=== PATIENT | female | born 1990 | race Caucasian/White ===

== ENCOUNTER 2020-02-14 12:20 | Day surgery (SDC) | payer MEDICARE ==
[2020-02-14] MEDS ORDERED: LIDOCAINE HCL 2% 100 MG/5 ML IJ ONE (12:21)
[2020-02-14] MEDS ORDERED: Depo-Medrol 40 MG/ML IM ONE (12:21)
[2020-02-14] MEDS ORDERED: DIPRIVAN 200 MG/20 ML IV ONE ×2 (14:06→14:15)
[2020-02-14] MEDS ORDERED: Ketamine HCl 50 MG/ML ONE (14:06)
--- NOTE | 2020-02-14 15:18 | XRAY ---
Indication: Bilateral L4-S1 MBB. Intraoperative fluoroscopy was provided for 17 seconds. Single digital spot image submitted for interpretation demonstrates posterior needle tips projecting over the expected left and right L4-S1 nerve roots. Correlate with intraoperative findings/report.
--- NOTE | 2020-02-14 15:22 | XRAY ---
17 seconds fluoroscopy time in surgery for bilateral L4-S1 MBB.
[2020-02-14] MEDS ORDERED: Lactated Ringers 1,000 ML IV ONE (16:51)
== END 2020-02-14 14:40 | disposition home or self-care (01) ==
LOC: SDC-PAIN 12:20
PROVIDERS: ATTEND Psychiatry & Neurology Pain Medicine
DX: M47.816 Spondylosis without myelopathy or radiculopathy, lumbar region (principal); F43.10 Post-traumatic stress disorder, unspecified; M41.9 Scoliosis, unspecified; J45.909 Unspecified asthma, uncomplicated; Z79.899 Other long term (current) drug therapy; F41.8 Other specified anxiety disorders
CPT/HCPCS: 64493; 64494; 72020; 77002; 84703; J1030; J2704

== ENCOUNTER 2020-02-28 12:55 | Day surgery (SDC) | payer MEDICARE | END 2020-02-28 14:00 | disposition home or self-care (01) | LOC: SDC-PAIN 12:55 | PROVIDERS: ATTEND Psychiatry & Neurology Pain Medicine | DX: Z53.09 Procedure and treatment not carried out because of other contraindication (principal) | CPT/HCPCS: 84703 ==

== ENCOUNTER 2020-03-20 12:25 | Day surgery (SDC) | payer MEDICARE ==
[2020-03-20] MEDS ORDERED: BUPIVACAINE 0.5% VIAL IJ ONE (12:26)
[2020-03-20] MEDS ORDERED: Depo-Medrol 40 MG/ML IM ONE (12:26)
[2020-03-20] MEDS ORDERED: DIPRIVAN 200 MG/20 ML IV ONE (14:31)
[2020-03-20] MEDS ORDERED: Ketamine HCl 50 MG/ML ONE (14:31)
--- NOTE | 2020-03-20 15:22 | XRAY ---
Indication: Bilateral L4-S1 MBB. Intraoperative fluoroscopy was provided for 13 seconds. Single digital spot image submitted for interpretation demonstrates posterior needle tips projecting over the expected left and right L4-S1 nerve roots. Correlate with intraoperative findings/report.
[2020-03-20] MEDS ORDERED: Lactated Ringers 1,000 ML IV ONE (15:31)
--- NOTE | 2020-03-20 17:28 | XRAY ---
13 seconds fluoroscopy time in surgery for bilateral L4-S1 MBB.
== END 2020-03-20 15:00 | disposition home or self-care (01) ==
LOC: SDC-PAIN 12:25
PROVIDERS: ATTEND Psychiatry & Neurology Pain Medicine
DX: M47.816 Spondylosis without myelopathy or radiculopathy, lumbar region (principal); Z87.820 Personal history of traumatic brain injury; J45.909 Unspecified asthma, uncomplicated; F43.10 Post-traumatic stress disorder, unspecified; F41.8 Other specified anxiety disorders; M41.9 Scoliosis, unspecified; Z79.899 Other long term (current) drug therapy
CPT/HCPCS: 36415; 64493; 64494; 64495; 72020; 77002; 81025; J1030; J2704

== ENCOUNTER 2020-05-22 10:30 | Day surgery (SDC) | payer MEDICARE ==
[2020-05-22] MEDS ORDERED: Xylocaine 1% Vial 30 ML PF IJ ONE (10:31)
[2020-05-22] MEDS ORDERED: Depo-Medrol 40 MG/ML IM ONE (10:31)
[2020-05-22] MEDS ORDERED: BUPIVACAINE 0.5% VIAL IJ ONE (10:31)
[2020-05-22] MEDS ORDERED: DIPRIVAN 200 MG/20 ML IV ONE ×2 (12:40→12:50)
[2020-05-22] MEDS ORDERED: Ketamine HCl 50 MG/ML ONE (12:40)
[2020-05-22] MEDS ORDERED: Lactated Ringers 1,000 ML IV ONE (14:06)
--- NOTE | 2020-05-22 14:56 | XRAY ---
Indication: Left L4-S1 RFA. Intraoperative fluoroscopy provided for 40 seconds. 3 digital spot images submitted for interpretation demonstrates posterior needle tips projecting over the expected left L4-S1 nerve roots. Correlate with intraoperative findings/report.
--- NOTE | 2020-05-22 15:03 | XRAY ---
40 seconds fluoroscopy time in surgery for left L4-S1 RFA.
== END 2020-05-22 13:20 | disposition home or self-care (01) ==
LOC: SDC-PAIN 10:30
PROVIDERS: ATTEND Psychiatry & Neurology Pain Medicine
DX: M47.816 Spondylosis without myelopathy or radiculopathy, lumbar region (principal); F41.8 Other specified anxiety disorders; F43.10 Post-traumatic stress disorder, unspecified; M41.9 Scoliosis, unspecified; Z87.820 Personal history of traumatic brain injury; Z79.899 Other long term (current) drug therapy
CPT/HCPCS: 36415; 64635; 64636; 72100; 77002; 81025; J1030; J2001; J2704

== ENCOUNTER 2020-06-05 12:35 | Day surgery (SDC) | payer MEDICARE ==
[2020-06-05] MEDS ORDERED: Xylocaine 1% Vial 30 ML PF IJ ONE (12:36)
[2020-06-05] MEDS ORDERED: Depo-Medrol 40 MG/ML IM ONE (12:36)
[2020-06-05] MEDS ORDERED: BUPIVACAINE 0.5% VIAL IJ ONE (12:36)
[2020-06-05] MEDS ORDERED: DIPRIVAN 200 MG/20 ML IV ONE ×2 (14:46→14:56)
[2020-06-05] MEDS ORDERED: Ketamine HCl 50 MG/ML ONE (14:46)
--- NOTE | 2020-06-05 15:45 | XRAY ---
Indication: Right L4-S1 RFA. Intraoperative fluoroscopy provided for 47 seconds. 3 digital spot images submitted for interpretation demonstrates posterior needle tips projecting over the expected right L4-S1 nerve roots. Correlate with intraoperative findings/report.
--- NOTE | 2020-06-05 16:01 | XRAY ---
47 seconds of fluoroscopy was used in surgery for a right L4-L5 and L5-S1 RFA.
[2020-06-05] MEDS ORDERED: Lactated Ringers 1,000 ML IV ONE (16:37)
== END 2020-06-05 15:24 | disposition home or self-care (01) ==
LOC: SDC-PAIN 12:35
PROVIDERS: ATTEND Psychiatry & Neurology Pain Medicine
DX: M47.816 Spondylosis without myelopathy or radiculopathy, lumbar region (principal); J45.909 Unspecified asthma, uncomplicated; Z87.820 Personal history of traumatic brain injury; F43.10 Post-traumatic stress disorder, unspecified; M41.9 Scoliosis, unspecified; F41.8 Other specified anxiety disorders; Z79.899 Other long term (current) drug therapy
CPT/HCPCS: 36415; 64635; 64636; 72100; 77002; 84702; J1030; J2001; J2704

== ENCOUNTER 2021-02-26 07:59 | Day surgery (SDC) | payer MEDICARE ==
[2021-02-26] MEDS ORDERED: TYLENOL EXTRA STRENGTH 500 MG PO ONE (08:00)
[2021-02-26] MEDS ORDERED: Xylocaine 1% Vial 30 ML PF IJ ONE (08:00)
[2021-02-26] MEDS ORDERED: BUPIVACAINE 0.5% VIAL IJ ONE (08:00)
[2021-02-26] MEDS ORDERED: Depo-Medrol 40 MG/ML IM ONE (08:00)
[2021-02-26] MEDS ORDERED: Lactated Ringers 1,000 ML IV ONE (09:20)
--- NOTE | 2021-02-26 10:39 | XRAY ---
Indication: Left L4-S1 transforaminal NANO. Intraoperative fluoroscopy provided for 44 seconds. 5 digital spot images submitted for interpretation demonstrate posterior needle tips projecting over the expected left L4 and L5 nerve roots. Small amount of contrast injected for needle tip placement. Correlate with intraoperative findings/report.
--- NOTE | 2021-02-26 10:44 | XRAY ---
44 seconds fluoroscopy time in surgery for left L4-S1 transforaminal NANO.
== END 2021-02-26 10:15 | disposition home or self-care (01) ==
LOC: SDC-PAIN 07:59
PROVIDERS: ATTEND Psychiatry & Neurology Pain Medicine
DX: M54.16 Radiculopathy, lumbar region (principal); Z72.0 Tobacco use
CPT/HCPCS: 64483; 64484; 72100; 77003; 84703; J1030; J2001; Q9966; A9270-GY

== ENCOUNTER 2021-03-02 15:01 | Emergency (ER) | payer MEDICARE ==
--- NOTE | 2021-03-02 15:37 | ERPHSYRPT ---
- History of Present Illness Source: patient Exam Limitations: no limitations Timing/Duration: today Method of Injury: fall Quality: sharp Back Pain Location: lumbar spine, paraspinous muscles Severity of Pain-Max: severe Severity of Pain-Current: severe Modifying Factors: Improves With: immobilization. Worsens With: movement Associated Symptoms: weakness, sensory/motor loss, lower back pain Previous symptoms: same symptoms as today <ROSINA LEDBETTER - Last Filed: 03/02/21 18:54> <VITALIY LEE - Last Filed: 03/02/21 20:56> - History of Present Illness Time Seen by Provider: 03/02/21 15:07 Physician History: 30-year-old morbidly obese female with history of chronic lower extremity weakness, chronic back pain on pain management presented in the ER with chief complaint of worsening back pain after she was trying to put her compression stockings and slid out of her bed and hit her lower back against the bed rail. Moderate to severe sharp pain lower back without much radiation and no new wea kness tingling or numbness in lower extremities but but she has chronically and uses leg braces. No loss of bowel or bladder control. Patient was seen at [facility] earlier today. (ROSINA LEDBETTER) Allergies/Adverse Reactions: codeine Allergy (Verified 03/02/21 15:40) morphine Allergy (Verified 03/02/21 15:40) NSAIDS (Non-Steroidal Anti-Inflamma Allergy (Verified 03/02/21 15:40) sulfamethoxazole [From Bactrim] Allergy (Verified 03/02/21 15:40) trimethoprim [From Bactrim] Allergy (Verified 03/02/21 15:40) Home Medications: Acetaminophen 325 mg [Tylenol 325 mg] 325 mg PO DAILY PRN PRN 03/02/21 [History] Baclofen 20 mg PO QID 03/02/21 [History] Benazepril/Hydrochlorothiazide [Benazepril-Hctz 20-12.5 mg Tab] 1 each PO DAILY 03/02/21 [History] Bethanechol Chloride 10 mg PO BID 03/02/21 [History] Docusate Sodium 100 mg [Colace 100 MG] 100 mg PO DAILY 03/02/21 [History] Gabapentin [Neurontin] 600 mg PO DAILY 03/02/21 [History] Hydrocodone/Acetaminophen [Hydrocodone-Acetamin 10-325 mg] 1 tablet PO DAILY PRN PRN 03/02/21 [History] Levocetirizine Dihydrochloride [Allergy Relief] 5 mg PO DAILY 03/02/21 [History] Levothyroxine Sodium 100 Mcg [Synthroid 100 Mcg] 100 mcg PO DAILY 03/02/21 [History] Promethazine HCl 25 mg [Phenergan 25 mg] 25 mg PO DAILY 03/02/21 [History] - Review of Systems Constitutional: No Symptoms Eyes: No Symptoms Ears, Nose, & Throat: No Symptoms Respiratory: No Symptoms Cardiac: No Symptoms Abdominal/Gastrointestinal: No Symptoms Musculoskeletal: Arthralgias, Back Pain Skin: No Symptoms Neurological: Sensory Changes Psychological: No Symptoms Endocrine: No Symptoms Hematologic/Lymphatic: No Symptoms <ROSINA LEDBETTER - Last Filed: 03/02/21 18:54> - Past Medical History Neurological History: Migraines, Other Cardiac History: No Pertinent History Respiratory History: Asthma Endocrine Medical History: Hyperthyroidism, Other Musculoskeletal History: Osteoarthritis Other Medical History: kidney stones, anoxic brain injury - Female History Hx Now: (unkn) <ROSINA LEDBETTER - Last Filed: 03/02/21 18:54> - Physical Exam General Appearance: no apparent distress Eye Exam: PERRL/EOMI Ears, Nose, Throat Exam: normal ENT inspection Neck Exam: normal inspection, supple, full range of motion Respiratory Exam: normal breath sounds, lungs clear Cardiovascular Exam: regular rate/rhythm, normal heart sounds Gastrointestinal Exam: soft, normal bowel sounds, No tenderness Back Exam: vertebral tenderness (Lumbar spinal and paraspinal area), decreased range of motion, muscle spasm, point tenderness Extremity Exam: normal inspection, other (Straight leg raising test positive at 60 degrees on right and 45 degrees on the left.), No normal range of motion (Foot drop left) Neurologic Exam: alert, oriented x 3, cooperative, manager linux II-XII nml as tested, normal mood/affect, No nml station & gait Skin Exam: normal color SpO2 Interpretation: normal SpO2: 96 O2 Delivery: Room Air <ROSINA LEDBETTER - Last Filed: 03/02/21 18:54> - Nursing Vital Signs Nursing Vital Signs: Initial Vital Signs Temperature 99.4 F 03/02/21 15:07 Pulse Rate 107 H 03/02/21 15:07 Respiratory Rate 20 03/02/21 15:07 Blood Pressure 148/94 03/02/21 15:07 O2 Sat by Pulse Oximetry 97 03/02/21 15:07 Pain Scale Pain Intensity [Back] 10 Pain Intensity 8 Ordered Tests: Active Orders 24 hr Category Date Time Status LUMBAR SPINE W/O [CT] Stat Exams 03/02/21 15:32 Taken Medication Summary Discontinued Medications Generic Name Dose Route Start Last Admin Trade Name Skip PRN Reason Stop Dose Admin Hydromorphone HCl 1 mg 03/02/21 15:31 03/02/21 15:43 Hydromorphone 1 Mg/1ml Inj 1 Mg/Ml Syringe IM 03/02/21 15:32 1 mg STAT ONE Administration Hydromorphone HCl Confirm 03/02/21 15:41 Hydromorphone 1 Mg/1ml Inj 1 Mg/Ml Syringe Administered 03/02/21 15:42 Dose 1 mg .ROUTE .STK-MED ONE Orphenadrine Citrate 60 mg 03/02/21 15:32 03/02/21 15:42 Orphenadrine Citrate 60 Mg/2 Ml Amp IM 03/02/21 15:33 60 mg STAT ONE Administration Orphenadrine Citrate Confirm 03/02/21 15:41 Orphenadrine Citrate 60 Mg/2 Ml Amp Administered 03/02/21 15:42 Dose 60 mg .ROUTE .STK-MED ONE - Progress Progress: improved, pain not gone completely <ROSINA LEDBETTER - Last Filed: 03/02/21 18:54> - Progress Counseled pt/family regarding: diagnosis, need for follow-up, rad results <VITALIY LEE - Last Filed: 03/02/21 20:56> - Progress Progress Note: 03/02/21 18:54 She is given symptomatic treatment for pain, reevaluation feeling better. No cauda equina symptoms. CT lumbar spine is pending. I have reviewed x-ray results and ER visit note from [facility] this morning which did not show any obvious fracture dislocation. Care is transferred to Dr. Lee at shift change for final disposition. (ROSINA LEDBETTER) 03/02/21 20:56 CAT scan of the lumbar spine shows no acute fracture or subluxation. (VITALIY THOMAS) <ROSINA LEDBETTER - Last Filed: 03/02/21 18:54> - Departure Departure Disposition: Home Critical Care Time: No <VITALIY LEE - Last Filed: 03/02/21 20:56> - Departure Clinical Impression: Back pain Condition: Stable Referrals: SOLEDAD GARCIA NP [Primary Care Provider] - Follow up/PCP as directed Additional Instructions: Take your medication as prescribed. Follow-up with your primary care physician, a pain specialist, and/or back specialist for further management.
[2021-03-02] MEDS ORDERED: Hydromorphone 1 mg/ml Injection ONE (15:41)
[2021-03-02] MEDS ORDERED: Norflex 60 MG/2 ML ONE (15:41)
[2021-03-02] MEDS: Norflex 60 MG/2 ML IM ONE (15:42)
[2021-03-02] MEDS: Hydromorphone 1 mg/ml Injection IM ONE (15:43)
--- NOTE | 2021-03-03 09:01 | XRAY ---
Indication: Low back pain following fall. Multiple contiguous axial images obtained through the lumbar spine. Sagittal and coronal reformatted images obtained. Comparison: None Axial images negative for acute fracture, suspicious bony lesions, or spinal canal stenosis. Facets are symmetric. Sagittal and coronal reformatted images demonstrates normal lumbar lordosis with vertebral body heights/disc spaces maintained. Mild levoscoliosis centered at L3. No acute compression fracture or subluxation. Visualized noncontrasted soft tissues demonstrates nonobstructing 2 mm left renal calculus. Impression: 1. Mild levoscoliosis and nonobstructing left renal micro-calculus. 2. Remaining CT lumbar spine is negative. Comment: Preliminary interpretation made by [facility]. No critical discrepancy.
[2021-03-03 17:08] VITALS: BP 142/78; PULSE 92; O2SAT 95
== END 2021-03-02 21:36 | disposition home or self-care (01) ==
LOC: ED 15:01
DX: M54.50 Low back pain, unspecified (principal); W06.XXXA Fall from bed, initial encounter; Y92.003 Bedroom of unspecified non-institutional (private) residence as the place of occurrence of the external cause; Z79.891 Long term (current) use of opiate analgesic
CPT/HCPCS: 72131; 96372; 99284; J1170; J2360

== ENCOUNTER 2021-03-10 08:05 | Emergency (ER) | payer MEDICARE ==
[2021-03-10 08:12] VITALS: O2SAT 98
--- NOTE | 2021-03-10 09:03 | ERPHSYRPT ---
- History of Present Illness Source: patient Exam Limitations: other (Poor historian) Patient Subjective Stated Complaint: pt here for falls, last fall was this am when she slid out of bed and ems helped her up. co pain to lower back that is chronic for her, Triage Nursing Assessment: pt alert, resp easy, skin w/d/p. pt has braces to lower legs, from foot drop and uses a wc at home, skin w/d/p. face mask in place, has yellow bruising to right arm Physician History: 30 yo wf w chronic B foot drop due to previous OD/extended ICU stay presents w lumbar-coccygeal pain after several falls due to her disability. She denies LOC/GARDINER/C,T, and L-spine pain/Ab pain/hip pain/upper-lower extremity pain/melena/hematochezia/focal weakness/fever/cough/chills. Occurred: yesterday Reason for Fall: tripped (Due to chronic B LE foot drop) Injuries/Pain Location: back (Lumbar-coccyx) Loss of Consciousness: no loss of consciousness Quality: aching Severity of Pain-Max: moderate Severity of Pain-Current: moderate Modifying Factors: Improves With: movement Associated Symptoms (Fall): back pain, No abdominal pain, No confusion, No chest pain, No dizziness, No extremity injury, No headache, No lightheadedness, No muscle spasms, No nausea, No neck pain, No ringing in ears, No seizures, No shortness of breath, No slurred speech, No trouble walking, No vomiting, No vision changes Allergies/Adverse Reactions: codeine Allergy (Verified 03/10/21 08:12) morphine Allergy (Verified 03/10/21 08:12) NSAIDS (Non-Steroidal Anti-Inflamma Allergy (Verified 03/10/21 08:12) sulfamethoxazole [From Bactrim] Allergy (Verified 03/10/21 08:12) trimethoprim [From Bactrim] Allergy (Verified 03/10/21 08:12) Home Medications: Benazepril/Hydrochlorothiazide [Benazepril-Hctz 20-12.5 mg Tab] 1 each PO DAILY 03/02/21 [History] Bethanechol Chloride 10 mg PO BID 03/02/21 [History] Docusate Sodium 100 mg [Colace 100 MG] 100 mg PO DAILY 03/02/21 [History] Gabapentin [Neurontin] 600 mg PO DAILY 03/02/21 [History] Levocetirizine Dihydrochloride [Allergy Relief] 5 mg PO DAILY 03/02/21 [History] Levothyroxine Sodium 100 Mcg [Synthroid 100 Mcg] 100 mcg PO DAILY 03/02/21 [History] Promethazine HCl 25 mg [Phenergan 25 mg] 25 mg PO DAILY 03/02/21 [History] Hx Tetanus, Diphtheria Vaccination/Date Given: No Hx Influenza Vaccination/Date Given: Yes Hx Pneumococcal Vaccination/Date Given: Yes Immunizations Up to Date: Yes Travel Risk - International Travel Have you traveled outside of the country in past 3 weeks: No - Coronavirus Screening Are you exhibiting any of the following symptoms?: No - Vaccine Status Have you recieved a Covid-19 vaccination: No - Review of Systems Constitutional: No Symptoms Eyes: No Symptoms Ears, Nose, & Throat: No Symptoms Respiratory: No Symptoms Cardiac: No Symptoms Abdominal/Gastrointestinal: No Symptoms Genitourinary Symptoms: No Symptoms Musculoskeletal: No Symptoms, Back Pain Skin: No Symptoms Neurological: No Symptoms Psychological: No Symptoms Endocrine: No Symptoms Hematologic/Lymphatic: No Symptoms Immunological/Allergic: No Symptoms - Past Medical History Pertinent Past Medical History: Yes Neurological History: Migraines, Other ENT History: No Pertinent History Cardiac History: No Pertinent History Respiratory History: Asthma Endocrine Medical History: Hyperthyroidism, Other Musculoskeletal History: Osteoarthritis GI Medical History: No Pertinent History History: No Pertinent History Psycho-Social History: No Pertinent History Female Reproductive Disorders: No Pertinent History Other Medical History: kidney stones, anoxic brain injury - Past Surgical History Past Surgical History: Yes Musculoskeletal: Orthopedic Surgery Female Surgical History: Dilation & Curettage, Tubal Ligation Other Surgical History: Ablasion, pain injections to back. R knee - Social History Smoking Status: Current every day smoker How long have you smoked: years Exposure to second hand smoke: Yes Drug Use: none Patient Lives Alone: Yes Significant Family History: no pertinent family hx - Female History Hx Last Menstrual Period: irregular Hx Now: No - Nursing Vital Signs Nursing Vital Signs: Initial Vital Signs Temperature 97.8 F 03/10/21 08:06 Pulse Rate 89 03/10/21 08:06 Respiratory Rate 16 03/10/21 08:06 Blood Pressure 127/72 03/10/21 08:06 O2 Sat by Pulse Oximetry 98 03/10/21 08:06 Pain Scale Pain Intensity 5 - Sonia Coma Score Best Eye Response (Sonia): (4) open spontaneously Best Verbal Response ([place]): (5) oriented Best Motor Response (Sonia): (6) obeys commands Sonia Total: 15 - Physical Exam General Appearance: no apparent distress Head Injury: no evidence of injury Eye Exam: PERRL/EOMI, eyes nml inspection ENT Exam: airway nml, No evidence of ENT injury Neck Exam: supple, trachea midline, full range of motion, normal alignment (No C-spine ttp), No focal neuro deficit Respiratory/Chest Exam: normal breath sounds, No respiratory distress Cardiovascular Exam: normal heart sounds, regular rate/rhythm, normal peripheral pulses, No murmur, No edema Gastrointestinal Exam: soft, normal bowel sounds, No tenderness Back Exam: vertebral tenderness (Mild inferior L-spine TTP and mild sacral- coccyx TTP) Extremity Exam: normal inspection (Braces B LE), capillary refill <3 sec, pelvis stable, No deformities Peripheral Pulses: carotid (R): 2+, carotid (L): 2+ Neurologic Exam: alert, oriented x 3, cooperative, 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, normal mood/affect, No motor deficits, No sensory deficit Skin Exam: normal color, warm, dry SpO2 Interpretation: normal SpO2: 98 O2 Delivery: Room Air - Course Nursing assessment & vital signs reviewed: Yes - Radiology Exams Other X-ray Interpretation: Discussed w/ radiologist (Sacral-coccygeal possible coccyx fx) - CT Exams Lumbar Spine CT Interpretation: Discussed w/radiologist (Nothing acute) Ordered Tests: Active Orders 24 hr Category Date Time Status LUMBAR SPINE W/O [CT] Stat Exams 03/10/21 08:49 Completed SACRUM AND COCCYX Stat Exams 03/10/21 Completed Medication Summary Discontinued Medications Generic Name Dose Route Start Last Admin Trade Name Freq PRN Reason Stop Dose Admin Hydromorphone HCl 0.5 mg 03/10/21 10:29 03/10/21 10:36 Hydromorphone 1 Mg/1ml Inj 1 Mg/Ml Syringe IM 03/10/21 10:30 0.5 mg STAT ONE Administration Hydromorphone HCl Confirm 03/10/21 10:35 Hydromorphone 1 Mg/1ml Inj 1 Mg/Ml Syringe Administered 03/10/21 10:36 Dose 5 mg .ROUTE .STK-MED ONE Ondansetron HCl 4 mg 03/10/21 10:29 03/10/21 10:38 Zofran 4 Mg/Udtablet Orally Disintegrating PO 03/10/21 10:30 4 mg STAT ONE Administration Ondansetron HCl Confirm 03/10/21 10:34 Ondansetron Hcl 4 Mg/2 Ml Vial Administered 03/10/21 10:35 Dose 4 mg .ROUTE .STK-MED ONE Ondansetron HCl Confirm 03/10/21 10:38 Zofran 4 Mg/Udtablet Orally Disintegrating Administered 03/10/21 10:39 Dose 4 mg .ROUTE .STK-MED ONE - Progress Progress: improved Progress Note: 03/10/21 10:31 Spoke w Pain management about pt. Pt missed her appointment on 03/03/21 and needs to reschedule and pay $25 cancellation fee. Pt not under pain contract, so ok to treat w narcotics. 03/10/21 19:22 0.5mg IV Dilaudid w relief in pain Zofran 4mg ODT Pt stable when EMS transferred to home Counseled pt/family regarding: diagnosis, need for follow-up, rad results - Departure Departure Disposition: Home Clinical Impression: Fractured coccyx Condition: Stable Critical Care Time: No Referrals: SOLEDAD GARCIA, MIHAELA [Primary Care Provider] - Follow up/PCP as directed Instructions: Coccyx Fracture (DC), Coccyx Injury (DC) Additional Instructions: Pain meds as needed Follow up with your pain physician Melchor vera Stool softener Prescriptions: Hydrocodone/Acetaminophen [Hydrocodone-Acetamin 10-325 mg] 1 each PO Q4-6HPRN PRN #6 tablet MDD 4tabs PRN Reason: Pain
--- NOTE | 2021-03-10 09:41 | XRAY ---
Indication: Pain following fall. Comparison: None 3 view sacrum/coccyx demonstrates angulated coccyx either developmental versus fracture of uncertain chronicity. No other bony, articular, or soft tissue abnormalities.
--- NOTE | 2021-03-10 09:44 | XRAY ---
Indication: Low back pain following fall. Multiple contiguous axial images obtained through the lumbar spine. Sagittal and coronal reformatted images obtained. Comparison: March 02, 2021 Axial images remain negative for acute fracture, suspicious bony lesions, or spinal canal stenosis. Facets are symmetric. Sagittal and coronal reformatted images again demonstrates normal lumbar lordosis with vertebral body heights/disc spaces maintained. Stable mild levoscoliosis centered at L3. No acute compression fracture or subluxation. Visualized noncontrasted soft tissues demonstrates nonobstructing 2 mm left renal calculus. Impression: Compared to CT one week ago, there is stable levoscoliosis and nonobstructing left renal micro-calculus. No new/acute findings.
[2021-03-10] MEDS ORDERED: ZOFRAN ODT 4 MG PO ONE (10:29)
[2021-03-10] MEDS ORDERED: Hydromorphone 1 mg/ml Injection IM ONE (10:29)
[2021-03-10] MEDS ORDERED: Zofran 4 MG/2 ML VIAL ONE (10:34)
[2021-03-10] MEDS ORDERED: Hydromorphone 1 mg/ml Injection ONE (10:35)
[2021-03-10] MEDS ORDERED: ZOFRAN ODT 4 MG ONE (10:38)
[2021-03-10 11:41] VITALS: BP 150/86; PULSE 70
== END 2021-03-10 12:30 | disposition home or self-care (01) ==
LOC: ED 08:05
DX: S32.2XXA Fracture of coccyx, initial encounter for closed fracture (principal); W01.0XXA Fall on same level from slipping, tripping and stumbling without subsequent striking against object, initial encounter; Z91.81 History of falling; Z72.0 Tobacco use; Z79.891 Long term (current) use of opiate analgesic
CPT/HCPCS: 72131; 72220; 96372; 99284; J1170; J2405; Q0162

== ENCOUNTER 2021-03-11 19:11 | Observation (INO) | payer MEDICARE ==
--- NOTE | 2021-03-11 19:34 | ERPHSYRPT ---
- History of Present Illness Source: patient, EMS Exam Limitations: no limitations Timing/Duration: worse, other (Chronic) Severity of Symptoms-Max: moderate Severity of Symptoms-Current: moderate Context related to: living circumstances, other (Of problems) Suicidal thoughts: other (Thoughts) Associated Symptoms: anxiety, depressed, frustrated, hallucinating (Auditoryh earing voices) Previous symptoms: same symptoms as today Hx Tetanus, Diphtheria Vaccination/Date Given: No Hx Influenza Vaccination/Date Given: Yes Hx Pneumococcal Vaccination/Date Given: Yes <VITALIY LEE - Last Filed: 03/12/21 06:21> <ROSINA LEDBETTER - Last Filed: 03/12/21 07:54> - History of Present Illness Time Seen by Provider: 03/11/21 19:20 Physician History: This is a 30-year-old morbidly obese white female who has chronic pain issues and presents via EMS for what was initially called out as back pain. However the patient arrived, she states that she is suicidal. She does not feel safe b eing alone. She also is having auditory hallucinations and hearing voices. Patient denies any illicit drug ingestion. She does not have a plan. She is not homicidal. (VITALIY LEE) Allergies/Adverse Reactions: codeine Allergy (Verified 03/11/21 19:45) morphine Allergy (Verified 03/11/21 19:45) NSAIDS (Non-Steroidal Anti-Inflamma Allergy (Verified 03/11/21 19:45) sulfamethoxazole [From Bactrim] Allergy (Verified 03/11/21 19:45) trimethoprim [From Bactrim] Allergy (Verified 03/11/21 19:45) Home Medications: Benazepril/Hydrochlorothiazide [Benazepril-Hctz 20-12.5 mg Tab] 1 each PO DAILY 03/02/21 [History] Bethanechol Chloride 10 mg PO BID 03/02/21 [History] Docusate Sodium 100 mg [Colace 100 MG] 100 mg PO DAILY 03/02/21 [History] Gabapentin [Neurontin] 600 mg PO DAILY 03/02/21 [History] Levocetirizine Dihydrochloride [Allergy Relief] 5 mg PO DAILY 03/02/21 [History] Levothyroxine Sodium 100 Mcg [Synthroid 100 Mcg] 100 mcg PO DAILY 03/02/21 [History] Promethazine HCl 25 mg [Phenergan 25 mg] 25 mg PO DAILY 03/02/21 [History] Travel Risk - International Travel Have you traveled outside of the country in past 3 weeks: No - Coronavirus Screening Are you exhibiting any of the following symptoms?: No Close contact with a COVID-19 positive Pt in past 14-21 Days: No - Vaccine Status Have you recieved a Covid-19 vaccination: No <VITALIY LEE - Last Filed: 03/12/21 06:21> - Past Medical History Pertinent Past Medical History: Yes Neurological History: Migraines, Other ENT History: No Pertinent History Cardiac History: No Pertinent History Respiratory History: Asthma Endocrine Medical History: Hyperthyroidism, Other Musculoskeletal History: Osteoarthritis GI Medical History: No Pertinent History History: No Pertinent History Psycho-Social History: No Pertinent History Female Reproductive Disorders: No Pertinent History Other Medical History: kidney stones, anoxic brain injury - Past Surgical History Past Surgical History: Yes Musculoskeletal: Orthopedic Surgery Female Surgical History: Dilation & Curettage, Tubal Ligation Other Surgical History: Ablasion, pain injections to back. R knee - Social History Smoking Status: Current every day smoker How long have you smoked: years Exposure to second hand smoke: Yes Drug Use: none Patient Lives Alone: Yes Significant Family History: no pertinent family hx <VITALIY LEE - Last Filed: 03/12/21 06:21> - Review of Systems Constitutional: No Symptoms Eyes: No Symptoms Ears, Nose, & Throat: No Symptoms Respiratory: No Symptoms Cardiac: No Symptoms Abdominal/Gastrointestinal: No Symptoms Genitourinary Symptoms: No Symptoms Musculoskeletal: Back Pain (Chronic) Skin: No Symptoms Neurological: No Symptoms Psychological: No Symptoms Endocrine: No Symptoms Hematologic/Lymphatic: No Symptoms Immunological/Allergic: No Symptoms All Other Systems: Reviewed and Negative <VITALIY LEE - Last Filed: 03/12/21 06:21> - Physical Exam General Appearance: no apparent distress, alert, anxiety, obese Eyes, Ears, Nose, Throat Exam: normal ENT inspection, moist mucous membranes Neck Exam: normal inspection, non-tender, supple, full range of motion Respiratory Exam: normal breath sounds, lungs clear, airway intact, No chest tenderness, No respiratory distress Cardiovascular Exam: regular rate/rhythm, normal heart sounds, normal peripheral pulses Gastrointestinal/Abdominal Exam: soft, normal bowel sounds, No tenderness Extremities Exam: normal inspection, normal range of motion, No evidence of injury Current Suicidality: denies suicide plan Neurological Exam: alert, normal mood/affect, calm, supervisor bottle machines II-XII nml as tested, oriented x 3, anxious, depressed affect Appearance: appropriate appearance, impaired insight Behavior/Eye Contact/Speech: alert & cooperative, good eye contact, normal speech Thoughts/Hallucinations: normal thought pattern, auditory hallucinations (Per her report she is hearing voices) Skin Exam: normal color, warm, dry SpO2 Interpretation: normal O2 Delivery: Room Air <VITALIY LEE - Last Filed: 03/12/21 06:21> - Nursing Vital Signs Nursing Vital Signs: Initial Vital Signs Temperature 97.7 F 03/11/21 19:18 Pulse Rate 84 03/11/21 19:18 Respiratory Rate 20 03/11/21 19:18 Blood Pressure 128/84 03/11/21 19:18 O2 Sat by Pulse Oximetry 96 03/11/21 19:18 Pain Scale Pain Intensity 8 - Course Nursing assessment & vital signs reviewed: Yes <VITALIY LEE - Last Filed: 03/12/21 06:21> Ordered Tests: Active Orders 24 hr Category Date Time Status EKG-ER Only STAT Care 03/11/21 19:19 Active ACETAMINOPHEN Stat Lab 03/11/21 19:42 Completed CBC W DIFF Stat Lab 03/11/21 19:42 Completed CMP Stat Lab 03/11/21 19:42 Completed ETHYL ALCOHOL Stat Lab 03/11/21 19:42 Completed SALICYLATE Stat Lab 03/11/21 19:42 Completed UA W/RFX UR CULTURE Stat Lab 03/11/21 20:54 Completed Urine Triage Profile Stat Lab 03/11/21 20:54 Completed Lab/Rad Data: Laboratory Result Diagrams 03/11/21 19:42 03/11/21 19:42 Laboratory Results 03/12/21 03/11/21 03/11/21 Range/Units 06:34 20:54 20:54 WBC (4.0-10.5) K/mm3 RBC (4.1-5.4) M/mm3 Hgb (12.0-16.0) gm/dl Hct (35-47) % MCV (78-100) fl MCH (26-32) pg MCHC (32-36) g/dl RDW (11.5-14.0) % Plt Count (150-450) K/mm3 MPV (7.5-11.0) fl Gran % (36.0-66.0) % Eos # (Auto) (0-0.5) Absolute Lymphs (auto) (1.0-4.6) Absolute Monos (auto) (0.0-1.3) Lymphocytes % (24.0-44.0) % Monocytes % (0.0-12.0) % Eosinophils % (0.00-5.0) % Basophils % (0.0-0.4) % Absolute Granulocytes (1.4-6.9) Basophils # (0-0.4) Sodium (137-145) mmol/L Potassium (3.5-5.1) mmol/L Chloride (98-107) mmol/L Carbon Dioxide (22-30) mmol/L Anion Gap (5-15) MEQ/L BUN (7-17) mg/dL Creatinine (0.52-1.04) mg/dL Estimated GFR ML/MIN Glucose (74-106) mg/dL Calcium (8.4-10.2) mg/dL Total Bilirubin (0.2-1.3) mg/dL AST (14-36) U/L ALT (0-35) U/L Alkaline Phosphatase (38-126) U/L Serum Total Protein (6.3-8.2) g/dL Albumin (3.5-5.0) g/dL Urine Color YELLOW (YELLOW) Urine Appearance SLIGHTLY CLOUDY (CLEAR) Urine pH 5.0 (5-6) Ur Specific [place] 1.026 (1.005-1.025) Urine Protein NEGATIVE (Negative) Urine Ketones NEGATIVE (NEGATIVE) Urine Blood NEGATIVE (0-5) Ar/ul Urine Nitrite NEGATIVE (NEGATIVE) Urine Bilirubin NEGATIVE (NEGATIVE) Urine Urobilinogen NEGATIVE (0-1) mg/dL Ur Leukocyte Esterase NEGATIVE (NEGATIVE) Urine WBC (Auto) 3-5 (0-5) /HPF Urine RBC (Auto) 3-5 (0-2) /HPF U Epithel Cells (Auto) RARE (FEW) /HPF Urine Bacteria (Auto) NONE SEEN (NEGATIVE) /HPF Urine Mucus (Auto) SLIGHT (NEGATIVE) /HPF Urine Culture Reflexed NO (NO) Urine Glucose NEGATIVE (NEGATIVE) mg/dL Salicylates (2-20) mg/dL Urine Opiates Level POSITIVE (NEGATIVE) Ur Methadone NEGATIVE (NEGATIVE) Acetaminophen (10-30) ug/ml Urine Barbiturates NEGATIVE (NEGATIVE) Ur Phencyclidine (PCP) NEGATIVE (NEGATIVE) Urine Amphetamine NEGATIVE (NEGATIVE) U Benzodiazepine Level NEGATIVE (NEGATIVE) Urine Cocaine NEGATIVE (NEGATIVE) Urine Marijuana (THC) NEGATIVE (NEGATIVE) Ethyl Alcohol (0-10) mg/dL SARS-CoV-2 Ag (Rapid) NEGATIVE (NEGATIVE) 03/11/21 03/11/21 Range/Units 19:42 19:42 WBC 14.6 H (4.0-10.5) K/mm3 RBC 4.85 (4.1-5.4) M/mm3 Hgb 13.5 (12.0-16.0) gm/dl Hct 43.5 (35-47) % MCV 89.7 (78-100) fl MCH 27.8 (26-32) pg MCHC 31.0 L (32-36) g/dl RDW 14.7 H (11.5-14.0) % Plt Count 293 (150-450) K/mm3 MPV 9.7 (7.5-11.0) fl Gran % 75.3 H (36.0-66.0) % Eos # (Auto) 0.18 (0-0.5) Absolute Lymphs (auto) 2.54 (1.0-4.6) Absolute Monos (auto) 0.86 (0.0-1.3) Lymphocytes % 17.4 L (24.0-44.0) % Monocytes % 5.9 (0.0-12.0) % Eosinophils % 1.2 (0.00-5.0) % Basophils % 0.2 (0.0-0.4) % Absolute Granulocytes 10.96 H (1.4-6.9) Basophils # 0.03 (0-0.4) Sodium 137 (137-145) mmol/L Potassium 3.7 (3.5-5.1) mmol/L Chloride 101 (98-107) mmol/L Carbon Dioxide 26 (22-30) mmol/L Anion Gap 13.7 (5-15) MEQ/L BUN 15 (7-17) mg/dL Creatinine 0.67 (0.52-1.04) mg/dL Estimated GFR > 60.0 ML/MIN Glucose 118 H (74-106) mg/dL Calcium 9.8 (8.4-10.2) mg/dL Total Bilirubin 0.30 (0.2-1.3) mg/dL AST 24 (14-36) U/L ALT 25 (0-35) U/L Alkaline Phosphatase 83 (38-126) U/L Serum Total Protein 7.4 (6.3-8.2) g/dL Albumin 4.4 (3.5-5.0) g/dL Urine Color (YELLOW) Urine Appearance (CLEAR) Urine pH (5-6) Ur Specific [place] (1.005-1.025) Urine Protein (Negative) Urine Ketones (NEGATIVE) Urine Blood (0-5) Ar/ul Urine Nitrite (NEGATIVE) Urine Bilirubin (NEGATIVE) Urine Urobilinogen (0-1) mg/dL Ur Leukocyte Esterase (NEGATIVE) Urine WBC (Auto) (0-5) /HPF Urine RBC (Auto) (0-2) /HPF U Epithel Cells (Auto) (FEW) /HPF Urine Bacteria (Auto) (NEGATIVE) /HPF Urine Mucus (Auto) (NEGATIVE) /HPF Urine Culture Reflexed (NO) Urine Glucose (NEGATIVE) mg/dL Salicylates < 1.0 L (2-20) mg/dL Urine Opiates Level (NEGATIVE) Ur Methadone (NEGATIVE) Acetaminophen < 10 L (10-30) ug/ml Urine Barbiturates (NEGATIVE) Ur Phencyclidine (PCP) (NEGATIVE) Urine Amphetamine (NEGATIVE) U Benzodiazepine Level (NEGATIVE) Urine Cocaine (NEGATIVE) Urine Marijuana (THC) (NEGATIVE) Ethyl Alcohol < 10 (0-10) mg/dL SARS-CoV-2 Ag (Rapid) (NEGATIVE) - Progress Counseled pt/family regarding: lab results, diagnosis <VITALIY LEE - Last Filed: 03/12/21 06:21> - Progress Discussed with : Jason Will see patient in: hospital (observation) <ROSINA LEDBETTER - Last Filed: 03/12/21 07:54> - Progress Progress Note: 03/12/21 06:21 Several calls were made to several different facilities and none of which have a bed for this patient. At this time we have sent the patient information to [facility] in [place]. We are waiting return of that evaluation. The patient is being signed out to Dr. Ledbetter at shift change and he will make the final disposition. (VITALIY LEE) 03/12/21 07:51 30-year-old with extensive history of psychiatric issues including suicidal attempts in the past with anoxic brain injury and some permanent neurologic damage, diabetic, hypertensive is checked out to me at shift change from Dr. Lee with pending transfer to psychiatric facility because of her suicidal ideations. During my evaluation patient reports she does not feel safe at home at all and does not want to go back. Several facilities are contacted so far but none have a bed available for her. Patient cannot be discharged and I have discussed with Dr. Felder, reviewed history and patient is being admitted here and case management will continue working on placement. (ROSINA LEDBETTER) - Departure Departure Disposition: Transfer Critical Care Time: No <VITALIY LEE - Last Filed: 03/12/21 06:21> - Departure Departure Disposition: Observation <ROSINA LEDBETTER - Last Filed: 03/12/21 07:54> - Departure Clinical Impression: Suicidal ideation, Auditory hallucination Condition: Stable Referrals: SOLEDAD GARCIA, REBEAMER [Primary Care Provider] - Follow up/PCP as directed
[2021-03-11 19:51] LABS: Absolute Neutrophil Ct (ANC) 10.96 (1.4-6.9); BASOPHIL % 0.2 % (0.0-0.4); Basophil (Absolute #) 0.03 (0-0.4); Eosinophil % 1.2 % (0.00-5.0); Eosinophil (Absolute #) 0.18 (0-0.5); Hematocrit 43.5 % (35-47); Hemoglobin 13.5 gm/dl (12.0-16.0); Lymphocyte (Absolute #) 2.54 (1.0-4.6); Lymphocytes % 17.4 % (24.0-44.0); Mean Cell Volume 89.7 fl (78-100); Mean Corpuscular Hemoglobin 27.8 pg (26-32); Mean Platelet Volume 9.7 fl (7.5-11.0); Monocyte (Absolute #) 0.86 (0.0-1.3); Monocytes % 5.9 % (0.0-12.0); Neutrophil % 75.3 % (36.0-66.0); Platelet Count 293 K/mm3 (150-450); Red Blood Count 4.85 M/mm3 (4.1-5.4); Red Cell Distribution Width 14.7 % (11.5-14.0); White Blood Count 14.6 K/mm3 (4.0-10.5)
[2021-03-11 19:58] LABS: ACETAMINOPHEN < 10 ug/ml (10-30); ALBUMIN 4.4 g/dL (3.5-5.0); ALKALINE PHOSPHATASE 83 U/L (38-126); ANION GAP 13.7 MEQ/L (5-15); BLOOD UREA NITROGEN 15 mg/dL (7-17); CHLORIDE 101 mmol/L (98-107); Calcium 9.8 mg/dL (8.4-10.2); Carbon Dioxide 26 mmol/L (22-30); Creatinine 1 0.67 mg/dL (0.52-1.04); EST GLOMERULAR FILTRATION RATE > 60.0 ML/MIN; ETHYL ALCOHOL < 10 mg/dL (0-10); Glucose 118 mg/dL (74-106); Potassium 3.7 mmol/L (3.5-5.1); SALICYLATE < 1.0 mg/dL (2-20); SGOT/AST 24 U/L (14-36); SGPT/ALT 25 U/L (0-35); SODIUM 137 mmol/L (137-145); Total Protein 7.4 g/dL (6.3-8.2)
[2021-03-11 21:16] LABS: Appearance SLIGHTLY CLOUDY (CLEAR); Bilirubin NEGATIVE (NEGATIVE); Blood NEGATIVE Ery/ul (0-5); Epithelial Cells RARE /HPF (FEW); Glucose NEGATIVE (NEGATIVE); Ketones NEGATIVE (NEGATIVE); Leukocyte Esterase NEGATIVE (NEGATIVE); Mucus SLIGHT /HPF (NEGATIVE); Nitrite NEGATIVE (NEGATIVE); Protein,Urine Dip NEGATIVE (Negative); Specific Gravity 1.026 (1.005-1.025); Urobilinogen NEGATIVE mg/dL (0-1)
[2021-03-11 21:17] LABS: Bacteria NONE SEEN /HPF (NEGATIVE)
[2021-03-11 21:22] LABS: Amphetamine,Urine NEGATIVE (NEGATIVE); Barbiturate,Urine NEGATIVE (NEGATIVE); Benzodiazepine,Urine NEGATIVE (NEGATIVE); Cocaine,Urine NEGATIVE (NEGATIVE); Methadone,Urine NEGATIVE (NEGATIVE); Opiate,Urine POSITIVE (NEGATIVE); PCP,Urine NEGATIVE (NEGATIVE); THC,Urine NEGATIVE (NEGATIVE)
[2021-03-12 07:21] LABS: COVID AG -BINAX NOW RAPID TEST NEGATIVE (NEGATIVE)
[2021-03-12] MEDS ORDERED: DUONEB 0.5-3 MG/3 ml Neb IH PRN (09:01)
[2021-03-12] MEDS ORDERED: HUMALOG SQ PRN (09:01)
--- NOTE | 2021-03-12 09:22 | PCM.HP ---
History of Present Illness - Chief Complaint Chief Complaint: Suicidal ideations History of Present Illness: is a 30 year old female with a complex medical history, she has chronic pain and sees Dr Kahn. She also has an extensive psychiatric history and [place] [facility], she states she is compliant with medications and denies running out of any of her meds recently, she is currently being treated with venlafaxine and sertraline, she is not on any antipsychotic medications. when asked about her diagnoses she lists ptsd and OCD but unsure if any other specific diagnoses, states I would have to check [place] [facility] She arrived via ambulance c/o auditory hallucinations and suicidal ideations. She attempted suicide by overdose 7 years ago, states she will not do that again but she feels unsafe being home by herself right now. she also has a prior history of anoxic brain injury, low back pain and foot drop, again sees Dr Kahn for her chronic pain. - Review of Systems Constitutional: No Fever, No Chills Respiratory: No Cough, No Short Of Breath Cardiac: No Chest Pain, No Edema, No Syncope Abdominal/Gastrointestinal: No Abdominal Pain, No Nausea, No Vomiting, No Diarrhea Psychological: Other (cooperative, polite and answers questions appropriately. appears to have good insight, knows her auditory hallucinations are not real but cannot make them stop), No Emotional Lability Medications & Allergies Home Medications: Home Medication List Bethanechol Chloride 10 mg PO BID 03/02/21 [History Confirmed 03/11/21] Docusate Sodium 100 mg [Colace 100 MG] 100 mg PO DAILY 03/02/21 [History Confirmed 03/11/21] Gabapentin [Neurontin] 600 mg PO DAILY 03/02/21 [History Confirmed 03/11/21] Levocetirizine Dihydrochloride [Allergy Relief] 5 mg PO DAILY 03/02/21 [History Confirmed 03/11/21] Albuterol Sulfate [Ventolin Hfa] 1 - 2 puff IH Q4-6HPRN PRN 03/12/21 [History Confirmed 03/12/21] Benazepril/Hydrochlorothiazide [Lotensin Hct 20-25 mg Tablet] 1 each PO DAILY 03/12/21 [History Confirmed 03/12/21] Hydrocodone/Acetaminophen [Hydrocodone-Acetamin 10-325 mg] 1 each PO TID PRN 03/12/21 [History Confirmed 03/12/21] Hydrocortisone 1% Cream [Cortisone 1% Cream] 1 gm TP DAILY PRN PRN 03/12/21 [History Confirmed 03/12/21] Levothyroxine Sodium 100 Mcg [Synthroid 100 Mcg] 100 mcg PO DAILY 03/12/21 [History Confirmed 03/12/21] Nystatin Powder 15 gm [Nystop Powder 15 gm] 1 applic TP BIDPRN PRN 03/12/21 [History Confirmed 03/12/21] Oxybutynin Chloride [Oxybutynin Chloride ER] 5 mg PO DAILY 03/12/21 [History Confirmed 03/12/21] Sertraline HCl 50 mg [Zoloft 50 mg Tablet] 50 mg PO DAILY 03/12/21 [History Confirmed 03/12/21] Topiramate 25 mg PO BID 03/12/21 [History Confirmed 03/12/21] Venlafaxine HCl ER 75 mg [Effexor XR 75 MG] 150 mg PO DAILY 03/12/21 [History Confirmed 03/12/21] Allergies/Adverse Reactions: Allergies Allergy/AdvReac Type Severity Reaction Status Date / Time codeine Allergy Verified 03/11/21 19:45 morphine Allergy Verified 03/11/21 19:45 NSAIDS (Non-Steroidal Allergy Verified 03/11/21 19:45 Anti-Inflamma sulfamethoxazole Allergy Verified 03/11/21 19:45 [From Bactrim] trimethoprim [From Bactrim] Allergy Verified 03/11/21 19:45 - Past Medical History Past Medical History: Yes Neurological History: Migraines, Other ENT History: No Pertinent History Cardiac History: No Pertinent History Respiratory History: Asthma Endocrine Medical History: Hyperthyroidism, Other Musculoskelatal History: Osteoarthritis GI Medical History: No Pertinent History History: No Pertinent History Pyscho-Social History: No Pertinent History Reproductive Disorders: No Pertinent History Comment: kidney stones, anoxic brain injury - Female History Hx Last Menstrual Period: Unknown Are you now?: No - Past Surgical History Past Surgical History: Yes Musculskeletal Surgical Hx: Orthopedic Surgery Female Surgical History: Dilation & Curettage, Tubal Ligation Other Surgical History: Ablasion, pain injections to back. R knee - Social History Smoking Status: Current every day smoker How long have you smoked: years Exposure to second hand smoke: Yes Alcohol: None Drug Use: none Significant Family History: no pertinent family hx - Physical Exam Vital Signs: Vital Signs - 24 hr Temp Pulse Resp BP Pulse Ox 03/12/21 08:00 70 16 123/69 98 03/12/21 06:00 90 21 176/90 96 03/12/21 05:00 86 21 110/70 94 L 03/12/21 04:00 90 20 105/73 96 03/12/21 03:00 86 20 123/79 96 03/12/21 02:00 89 19 112/48 95 03/12/21 01:00 90 18 133/85 96 03/12/21 00:00 90 18 111/74 96 03/11/21 23:04 86 19 120/60 96 03/11/21 22:00 80 20 111/56 95 03/11/21 21:00 86 20 106/73 97 03/11/21 20:11 90 20 132/106 95 03/11/21 19:18 97.7 F 84 20 128/84 96 General Appearance: obese Neurologic Exam: alert, oriented x 3, cooperative Respiratory Exam: normal breath sounds, lungs clear, No respiratory distress Cardiovascular Exam: regular rate/rhythm, normal heart sounds, normal peripheral pulses Gastrointestinal/Abdomen Exam: soft, normal bowel sounds, No tenderness, No mass Results - Labs Lab/Micro Results: Lab Results-Last 24 Hours 03/11/21 03/11/21 03/11/21 Range/Units 19:42 19:42 20:54 WBC 14.6 H (4.0-10.5) K/mm3 RBC 4.85 (4.1-5.4) M/mm3 Hgb 13.5 (12.0-16.0) gm/dl Hct 43.5 (35-47) % MCV 89.7 (78-100) fl MCH 27.8 (26-32) pg MCHC 31.0 L (32-36) g/dl RDW 14.7 H (11.5-14.0) % Plt Count 293 (150-450) K/mm3 MPV 9.7 (7.5-11.0) fl Gran % 75.3 H (36.0-66.0) % Eos # (Auto) 0.18 (0-0.5) Absolute Lymphs (auto) 2.54 (1.0-4.6) Absolute Monos (auto) 0.86 (0.0-1.3) Lymphocytes % 17.4 L (24.0-44.0) % Monocytes % 5.9 (0.0-12.0) % Eosinophils % 1.2 (0.00-5.0) % Basophils % 0.2 (0.0-0.4) % Absolute Granulocytes 10.96 H (1.4-6.9) Basophils # 0.03 (0-0.4) Sodium 137 (137-145) mmol/L Potassium 3.7 (3.5-5.1) mmol/L Chloride 101 (98-107) mmol/L Carbon Dioxide 26 (22-30) mmol/L Anion Gap 13.7 (5-15) MEQ/L BUN 15 (7-17) mg/dL Creatinine 0.67 (0.52-1.04) mg/dL Estimated GFR > 60.0 ML/MIN Glucose 118 H (74-106) mg/dL Calcium 9.8 (8.4-10.2) mg/dL Total Bilirubin 0.30 (0.2-1.3) mg/dL AST 24 (14-36) U/L ALT 25 (0-35) U/L Alkaline Phosphatase 83 (38-126) U/L Serum Total Protein 7.4 (6.3-8.2) g/dL Albumin 4.4 (3.5-5.0) g/dL Urine Color YELLOW (YELLOW) Urine Appearance SLIGHTLY CLOUDY (CLEAR) Urine pH 5.0 (5-6) Ur Specific [place] 1.026 (1.005-1.025) Urine Protein NEGATIVE (Negative) Urine Ketones NEGATIVE (NEGATIVE) Urine Blood NEGATIVE (0-5) Ar/ul Urine Nitrite NEGATIVE (NEGATIVE) Urine Bilirubin NEGATIVE (NEGATIVE) Urine Urobilinogen NEGATIVE (0-1) mg/dL Ur Leukocyte Esterase NEGATIVE (NEGATIVE) Urine WBC (Auto) 3-5 (0-5) /HPF Urine RBC (Auto) 3-5 (0-2) /HPF U Epithel Cells (Auto) RARE (FEW) /HPF Urine Bacteria (Auto) NONE SEEN (NEGATIVE) /HPF Urine Mucus (Auto) SLIGHT (NEGATIVE) /HPF Urine Culture Reflexed NO (NO) Urine Glucose NEGATIVE (NEGATIVE) mg/dL Salicylates < 1.0 L (2-20) mg/dL Urine Opiates Level (NEGATIVE) Ur Methadone (NEGATIVE) Acetaminophen < 10 L (10-30) ug/ml Urine Barbiturates (NEGATIVE) Ur Phencyclidine (PCP) (NEGATIVE) Urine Amphetamine (NEGATIVE) U Benzodiazepine Level (NEGATIVE) Urine Cocaine (NEGATIVE) Urine Marijuana (THC) (NEGATIVE) Ethyl Alcohol < 10 (0-10) mg/dL SARS-CoV-2 Ag (Rapid) (NEGATIVE) 03/11/21 03/12/21 Range/Units 20:54 06:34 WBC (4.0-10.5) K/mm3 RBC (4.1-5.4) M/mm3 Hgb (12.0-16.0) gm/dl Hct (35-47) % MCV (78-100) fl MCH (26-32) pg MCHC (32-36) g/dl RDW (11.5-14.0) % Plt Count (150-450) K/mm3 MPV (7.5-11.0) fl Gran % (36.0-66.0) % Eos # (Auto) (0-0.5) Absolute Lymphs (auto) (1.0-4.6) Absolute Monos (auto) (0.0-1.3) Lymphocytes % (24.0-44.0) % Monocytes % (0.0-12.0) % Eosinophils % (0.00-5.0) % Basophils % (0.0-0.4) % Absolute Granulocytes (1.4-6.9) Basophils # (0-0.4) Sodium (137-145) mmol/L Potassium (3.5-5.1) mmol/L Chloride (98-107) mmol/L Carbon Dioxide (22-30) mmol/L Anion Gap (5-15) MEQ/L BUN (7-17) mg/dL Creatinine (0.52-1.04) mg/dL Estimated GFR ML/MIN Glucose (74-106) mg/dL Calcium (8.4-10.2) mg/dL Total Bilirubin (0.2-1.3) mg/dL AST (14-36) U/L ALT (0-35) U/L Alkaline Phosphatase (38-126) U/L Serum Total Protein (6.3-8.2) g/dL Albumin (3.5-5.0) g/dL Urine Color (YELLOW) Urine Appearance (CLEAR) Urine pH (5-6) Ur Specific [place] (1.005-1.025) Urine Protein (Negative) Urine Ketones (NEGATIVE) Urine Blood (0-5) Ar/ul Urine Nitrite (NEGATIVE) Urine Bilirubin (NEGATIVE) Urine Urobilinogen (0-1) mg/dL Ur Leukocyte Esterase (NEGATIVE) Urine WBC (Auto) (0-5) /HPF Urine RBC (Auto) (0-2) /HPF U Epithel Cells (Auto) (FEW) /HPF Urine Bacteria (Auto) (NEGATIVE) /HPF Urine Mucus (Auto) (NEGATIVE) /HPF Urine Culture Reflexed (NO) Urine Glucose (NEGATIVE) mg/dL Salicylates (2-20) mg/dL Urine Opiates Level POSITIVE (NEGATIVE) Ur Methadone NEGATIVE (NEGATIVE) Acetaminophen (10-30) ug/ml Urine Barbiturates NEGATIVE (NEGATIVE) Ur Phencyclidine (PCP) NEGATIVE (NEGATIVE) Urine Amphetamine NEGATIVE (NEGATIVE) U Benzodiazepine Level NEGATIVE (NEGATIVE) Urine Cocaine NEGATIVE (NEGATIVE) Urine Marijuana (THC) NEGATIVE (NEGATIVE) Ethyl Alcohol (0-10) mg/dL SARS-CoV-2 Ag (Rapid) NEGATIVE (NEGATIVE) Assessment/Plan (1) Suicidal ideation Current Visit: Yes Status: Acute Assessment & Plan: psych has been consulted, no bed available apparently anywhere. patient is w illing to be admitted and wants help, does not feel safe to return to her home in her own care. needs placement Code(s): R45.851 - SUICIDAL IDEATIONS (2) Auditory hallucination Current Visit: Yes Status: Acute Assessment & Plan: patient is medically cleared, needs psych bed transfer. will start low dose risperdal 1mg daily for psychosis at this time while we await trasnfer Code(s): R44.0 - AUDITORY HALLUCINATIONS (3) Chronic back pain Current Visit: Yes Status: Acute Code(s): M54.9 - DORSALGIA, UNSPECIFIED; G89.29 - OTHER CHRONIC PAIN
[2021-03-12] MEDS ORDERED: Risperdal 1 MG PO SCH (10:00)
[2021-03-12] MEDS ORDERED: PROTONIX 40 MG IV IV SCH (10:00)
[2021-03-12] MEDS: TYLENOL 325 MG PO PRN ×2 (10:13→13:54)
[2021-03-12] MEDS: NICODERM CQ 14 MG TOP SCH (10:19)
[2021-03-12 10:37] LABS: Hemoglobin 12.2 gm/dl (12.0-16.0); Mean Cell Volume 90.3 fl (78-100); Mean Corpuscular Hemoglobin 28.2 pg (26-32); Mean Corpuscular Hgb Concent. 31.3 g/dl (32-36); Mean Platelet Volume 9.6 fl (7.5-11.0); Platelet Count 268 K/mm3 (150-450); Red Blood Count 4.32 M/mm3 (4.1-5.4); Red Cell Distribution Width 14.6 % (11.5-14.0); White Blood Count 12.4 K/mm3 (4.0-10.5)
[2021-03-12] MEDS ORDERED: Ventolin Hfa MDI IH PRN (11:01)
[2021-03-12 11:23] LABS: ANION GAP 11.3 MEQ/L (5-15); BLOOD UREA NITROGEN 12 mg/dL (7-17); CHLORIDE 103 mmol/L (98-107); Calcium 8.9 mg/dL (8.4-10.2); Carbon Dioxide 24 mmol/L (22-30); Creatinine 1 0.55 mg/dL (0.52-1.04); EST GLOMERULAR FILTRATION RATE > 60.0 ML/MIN; Glucose 112 mg/dL (74-106); PREALBUMIN 21.27 mg/dL (17.6-36.0); Potassium 3.7 mmol/L (3.5-5.1); SODIUM 135 mmol/L (137-145)
[2021-03-12] MEDS ORDERED: MEDICATION INTERVENTION PO SCH (11:30)
[2021-03-12] MEDS: HYDROCODONE-ACETAMIN 10-325 MG PO PRN ×2 (11:36→16:53)
[2021-03-12] MEDS: Protonix 40MG Tablet PO SCH (11:37)
[2021-03-12] MEDS: Lotensin 10 MG PO SCH (11:37)
[2021-03-12] MEDS: Ditropan XL 5 MG PO SCH (11:38)
[2021-03-12] MEDS: SYNTHROID 100 MCG PO SCH (11:38)
[2021-03-12] MEDS: TOPIRAMATE PO SCH ×2 (11:38→21:49)
[2021-03-12] MEDS: hydroDIURIL 25 MG PO SCH (11:38)
[2021-03-12] MEDS: Colace 100 MG PO SCH (11:38)
[2021-03-12] MEDS: Effexor XR 75 MG PO SCH (11:38)
[2021-03-12] MEDS: ZOLOFT 50 MG TABLET PO SCH (11:39)
[2021-03-12] MEDS: ZOFRAN ODT 4 MG PO PRN ×2 (13:54→19:49)
[2021-03-12] MEDS: VENTOLIN COMMON CANISTER IH PRN ×3 (16:05→19:38)
[2021-03-12] MEDS: NEURONTIN 300 MG PO SCH (21:49)
[2021-03-12] MEDS ORDERED: BETHANECHOL CHLORIDE 10 MG PO SCH (22:00)
[2021-03-12] MEDS ORDERED: NON-FORMULARY ITEM (Gabapentin [Neurontin] 600 MG Tablet) PO SCH (22:00)
[2021-03-12] MEDS ORDERED: NON-FORMULARY ITEM (Topiramate [Topiramate] 25 MG Tablet) PO SCH (22:00)
[2021-03-13] MEDS: HYDROCODONE-ACETAMIN 10-325 MG PO PRN ×4 (01:09→19:40)
[2021-03-13 06:03] LABS: Absolute Neutrophil Ct (ANC) 8.31 (1.4-6.9); BASOPHIL % 0.2 % (0.0-0.4); Basophil (Absolute #) 0.02 (0-0.4); Eosinophil % 1.2 % (0.00-5.0); Eosinophil (Absolute #) 0.14 (0-0.5); Hematocrit 39.4 % (35-47); Hemoglobin 11.9 gm/dl (12.0-16.0); Lymphocyte (Absolute #) 2.16 (1.0-4.6); Lymphocytes % 18.9 % (24.0-44.0); Mean Cell Volume 91.4 fl (78-100); Mean Corpuscular Hemoglobin 27.6 pg (26-32); Mean Corpuscular Hgb Concent. 30.2 g/dl (32-36); Mean Platelet Volume 9.8 fl (7.5-11.0); Neutrophil % 72.7 % (36.0-66.0); Platelet Count 273 K/mm3 (150-450); Red Blood Count 4.31 M/mm3 (4.1-5.4); Red Cell Distribution Width 14.7 % (11.5-14.0); White Blood Count 11.4 K/mm3 (4.0-10.5)
[2021-03-13 06:19] LABS: ANION GAP 12.6 MEQ/L (5-15); BLOOD UREA NITROGEN 11 mg/dL (7-17); CHLORIDE 99 mmol/L (98-107); Carbon Dioxide 27 mmol/L (22-30); Creatinine 1 0.63 mg/dL (0.52-1.04); EST GLOMERULAR FILTRATION RATE > 60.0 ML/MIN; Glucose 105 mg/dL (74-106); Potassium 3.4 mmol/L (3.5-5.1); SODIUM 135 mmol/L (137-145)
[2021-03-13] MEDS: VENTOLIN COMMON CANISTER IH PRN ×2 (07:27→19:24)
--- NOTE | 2021-03-13 08:19 | PCM.NOTE ---
Date and Time: 03/13/21816 Subjective Assessment: patient is still very anxious, states she does not feel safe but does think the risperdal gave her some benefit to calm her down but just not enough. Objective Exam General Appearance: no apparent distress, obese Respiratory Exam: normal breath sounds, lungs clear, No respiratory distress Cardiovascular Exam: regular rate/rhythm, normal heart sounds Gastrointestinal/Abdomen Exam: soft, other (ceballos cath in place), No tenderness, No mass OBJECTIVE DATA Vital Signs: Vital Signs - 24 hr Temp Pulse Resp BP Pulse Ox 03/13/21 07:32 82 18 96 03/13/21 04:00 97.3 F 83 20 129/73 96 03/13/21 00:00 97.7 F 85 18 116/53 96 03/12/21 20:00 99 H 18 130/67 99 03/12/21 19:43 100 H 18 97 03/12/21 16:05 105 H 18 97 03/12/21 16:00 98.2 F 100 H 118/58 94 L 03/12/21 12:00 97.8 F 96 H 20 115/68 Pain Assessment - Last Documented Pain Intensity 10 Pain Scale Used 0-10 Pain Scale Intake and Output: Intake & Output 03/10/21 03/11/21 03/12/21 03/13/21 11:59 11:59 11:59 11:59 Intake Total 920 Output Total 3050 Balance -2130 Weight 125.9 kg Lab Results: Lab Results-Last 24 Hours 03/12/21 03/12/21 03/12/21 Range/Units 10:20 10:20 11:41 WBC 12.4 H (4.0-10.5) K/mm3 RBC 4.32 (4.1-5.4) M/mm3 Hgb 12.2 (12.0-16.0) gm/dl Hct 39.0 (35-47) % MCV 90.3 (78-100) fl MCH 28.2 (26-32) pg MCHC 31.3 L (32-36) g/dl RDW 14.6 H (11.5-14.0) % Plt Count 268 (150-450) K/mm3 MPV 9.6 (7.5-11.0) fl Gran % (36.0-66.0) % Eos # (Auto) (0-0.5) Absolute Lymphs (auto) (1.0-4.6) Absolute Monos (auto) (0.0-1.3) Lymphocytes % (24.0-44.0) % Monocytes % (0.0-12.0) % Eosinophils % (0.00-5.0) % Basophils % (0.0-0.4) % Absolute Granulocytes (1.4-6.9) Basophils # (0-0.4) Sodium 135 L (137-145) mmol/L Potassium 3.7 (3.5-5.1) mmol/L Chloride 103 (98-107) mmol/L Carbon Dioxide 24 (22-30) mmol/L Anion Gap 11.3 (5-15) MEQ/L BUN 12 (7-17) mg/dL Creatinine 0.55 (0.52-1.04) mg/dL Estimated GFR > 60.0 ML/MIN Glucose 112 H (74-106) mg/dL POC Glucometer 241 H (74 to 106) mg/dL Hemoglobin A1c (4.5-6.0) % Calcium 8.9 (8.4-10.2) mg/dL Prealbumin 21.27 (17.6-36.0) mg/dL 03/12/21 03/12/21 03/12/21 Range/Units 16:13 17:30 21:40 WBC (4.0-10.5) K/mm3 RBC (4.1-5.4) M/mm3 Hgb (12.0-16.0) gm/dl Hct (35-47) % MCV (78-100) fl MCH (26-32) pg MCHC (32-36) g/dl RDW (11.5-14.0) % Plt Count (150-450) K/mm3 MPV (7.5-11.0) fl Gran % (36.0-66.0) % Eos # (Auto) (0-0.5) Absolute Lymphs (auto) (1.0-4.6) Absolute Monos (auto) (0.0-1.3) Lymphocytes % (24.0-44.0) % Monocytes % (0.0-12.0) % Eosinophils % (0.00-5.0) % Basophils % (0.0-0.4) % Absolute Granulocytes (1.4-6.9) Basophils # (0-0.4) Sodium (137-145) mmol/L Potassium (3.5-5.1) mmol/L Chloride (98-107) mmol/L Carbon Dioxide (22-30) mmol/L Anion Gap (5-15) MEQ/L BUN (7-17) mg/dL Creatinine (0.52-1.04) mg/dL Estimated GFR ML/MIN Glucose (74-106) mg/dL POC Glucometer 106 130 H (74 to 106) mg/dL Hemoglobin A1c 6.55 H (4.5-6.0) % Calcium (8.4-10.2) mg/dL Prealbumin (17.6-36.0) mg/dL 03/13/21 03/13/21 03/13/21 Range/Units 05:51 05:51 07:28 WBC 11.4 H (4.0-10.5) K/mm3 RBC 4.31 (4.1-5.4) M/mm3 Hgb 11.9 L (12.0-16.0) gm/dl Hct 39.4 (35-47) % MCV 91.4 (78-100) fl MCH 27.6 (26-32) pg MCHC 30.2 L (32-36) g/dl RDW 14.7 H (11.5-14.0) % Plt Count 273 (150-450) K/mm3 MPV 9.8 (7.5-11.0) fl Gran % 72.7 H (36.0-66.0) % Eos # (Auto) 0.14 (0-0.5) Absolute Lymphs (auto) 2.16 (1.0-4.6) Absolute Monos (auto) 0.80 (0.0-1.3) Lymphocytes % 18.9 L (24.0-44.0) % Monocytes % 7.0 (0.0-12.0) % Eosinophils % 1.2 (0.00-5.0) % Basophils % 0.2 (0.0-0.4) % Absolute Granulocytes 8.31 H (1.4-6.9) Basophils # 0.02 (0-0.4) Sodium 135 L (137-145) mmol/L Potassium 3.4 L (3.5-5.1) mmol/L Chloride 99 (98-107) mmol/L Carbon Dioxide 27 (22-30) mmol/L Anion Gap 12.6 (5-15) MEQ/L BUN 11 (7-17) mg/dL Creatinine 0.63 (0.52-1.04) mg/dL Estimated GFR > 60.0 ML/MIN Glucose 105 (74-106) mg/dL POC Glucometer 115 H (74 to 106) mg/dL Hemoglobin A1c (4.5-6.0) % Calcium 9.0 (8.4-10.2) mg/dL Prealbumin (17.6-36.0) mg/dL Multi-Disciplinary Progress Notes: Multi-Disciplinary Progress Notes 03/12/21 13:43 Case Management Note by Tonya Gill S/W PATIENT'S MOTHER (GUARDIAN) SHE REPORTS PATIENT LIVES HOME ALONE AND IS UNSAFE TO RETURN HOME BY HERSELF. SHE REPORTS PATIENT FREQUENTLY FALLS AND MAKES UNSAFE DECISIONS. SHE ALSO GETS VERY ANXIOUS WHEN SHE IS ALONE. 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 MOTHER REPORTS STAFFING SOMETIMES FALL THRU AND PATIENT IS ALONE. SHE IS ALSO LEFT ALONE AT NIGHT ALL THE TIME. MOTHER STATES PATIENT WAS ALONE LST PM AND LIKELY GOT ANXIOUS AND THAT IS WHY SHE CALLED THE AMBULANCE. MOTHER REPORTS PATIENT WAS IN [facility] FROM 02/12-02/19 THEN WAS IN [facility] FROM 03/04-03/07. SHE REPORTS SHE VOICED PLACEMENT WISHES TO THOSE FACILITIES BUT THEY REPORTED THEY WERE UNABLE TO HELP WITH THAT. MOTHER REPORTS SHE HAS BEEN TRYING TO GET HER INTO [place] BUT IS WAITING TO HEAR BACK. SHE WAS NOTIFIED ABOUT [facility] AND IS ALSO AGREEABLE FOR PLACEMENT THERE OR IN [place] IF POSSIBLE. S/W PATIENT- SHE IS VERY AGREEABLE TO [facility] PLACEMENT. STATES SHE DOES NOT FEEL SAFE AT HOME ALONE. PATIENT ALSO HAS A COOK APPRENTICE AT [facility]- CELINA RENEE CALLED AND UPDATED COSME AT DR. JACOBSEN' OFFICE OF THE ABOVE, WENT AHEAD AND FAXED REFERRAL TO [facility] IN CASE PATIENT GETS CLEARED PSYCH GARCIA AND IS ABLE TO TRANSFER TO AN ACCEPTING FACILITY. Initialized on 03/12/21 13:43 - END OF NOTE 03/12/21 12:09 Case Management Note by Tonya Gill WILL HOLD CO CASE MANAGEMENT ASSESS AT THIS TIME- PATIENT WAITING FOR PSYCH BED Initialized on 03/12/21 12:09 - END OF NOTE Assessment/Plan (1) Suicidal ideation Current Visit: Yes Status: Acute Code(s): R45.851 - SUICIDAL IDEATIONS (2) Auditory hallucination Current Visit: Yes Status: Acute Assessment & Plan: increase risperdal from 1mg to 2mg daily, psych recommends inpatient stay, waiting on bed Code(s): R44.0 - AUDITORY HALLUCINATIONS (3) Chronic back pain Current Visit: Yes Status: Acute Code(s): M54.9 - DORSALGIA, UNSPECIFIED; G89.29 - OTHER CHRONIC PAIN
[2021-03-13] MEDS: Lotensin 10 MG PO SCH (09:41)
[2021-03-13] MEDS: Risperdal 1 MG PO SCH (09:42)
[2021-03-13] MEDS: TOPIRAMATE PO SCH ×2 (09:42→21:36)
[2021-03-13] MEDS: SYNTHROID 100 MCG PO SCH (09:42)
[2021-03-13] MEDS: Ditropan XL 5 MG PO SCH (09:42)
[2021-03-13] MEDS: hydroDIURIL 25 MG PO SCH (09:42)
[2021-03-13] MEDS: Protonix 40MG Tablet PO SCH (09:42)
[2021-03-13] MEDS: Colace 100 MG PO SCH (09:42)
[2021-03-13] MEDS: Effexor XR 75 MG PO SCH (09:43)
[2021-03-13] MEDS: NICODERM CQ 14 MG TOP SCH (09:43)
[2021-03-13] MEDS: ZOLOFT 50 MG TABLET PO SCH (09:43)
[2021-03-13] MEDS ORDERED: HYDROCHLOROTHIAZIDE PO SCH (10:00)
[2021-03-13] MEDS ORDERED: [UNRECOGNIZED DRUG - OTHER] PO SCH (10:00)
[2021-03-13] MEDS ORDERED: BENAZEPRIL PO SCH (10:00)
[2021-03-13] MEDS: TYLENOL 325 MG PO PRN (14:52)
[2021-03-13] MEDS: ZOFRAN ODT 4 MG PO PRN (18:18)
[2021-03-13] MEDS: Miralax Powder 17GM PACKET PO SCH (21:36)
[2021-03-13] MEDS: NEURONTIN 300 MG PO SCH (21:36)
[2021-03-14 05:44] LABS: Absolute Neutrophil Ct (ANC) 9.47 (1.4-6.9); BASOPHIL % 0.2 % (0.0-0.4); Basophil (Absolute #) 0.02 (0-0.4); Eosinophil % 1.2 % (0.00-5.0); Eosinophil (Absolute #) 0.16 (0-0.5); Hematocrit 38.3 % (35-47); Hemoglobin 11.8 gm/dl (12.0-16.0); Lymphocyte (Absolute #) 2.54 (1.0-4.6); Lymphocytes % 19.4 % (24.0-44.0); Mean Cell Volume 91.4 fl (78-100); Mean Corpuscular Hemoglobin 28.2 pg (26-32); Mean Corpuscular Hgb Concent. 30.8 g/dl (32-36); Mean Platelet Volume 9.8 fl (7.5-11.0); Monocyte (Absolute #) 0.88 (0.0-1.3); Monocytes % 6.7 % (0.0-12.0); Neutrophil % 72.5 % (36.0-66.0); Platelet Count 256 K/mm3 (150-450); Red Blood Count 4.19 M/mm3 (4.1-5.4); Red Cell Distribution Width 14.7 % (11.5-14.0); White Blood Count 13.1 K/mm3 (4.0-10.5)
[2021-03-14 06:01] LABS: ALBUMIN 3.6 g/dL (3.5-5.0); ALKALINE PHOSPHATASE 65 U/L (38-126); ANION GAP 10.7 MEQ/L (5-15); BLOOD UREA NITROGEN 8 mg/dL (7-17); CHLORIDE 99 mmol/L (98-107); Carbon Dioxide 27 mmol/L (22-30); Creatinine 1 0.56 mg/dL (0.52-1.04); EST GLOMERULAR FILTRATION RATE > 60.0 ML/MIN; Glucose 107 mg/dL (74-106); Potassium 3.4 mmol/L (3.5-5.1); SGOT/AST 17 U/L (14-36); SGPT/ALT 19 U/L (0-35); SODIUM 133 mmol/L (137-145); Total Protein 6.2 g/dL (6.3-8.2)
[2021-03-14] MEDS: HYDROCODONE-ACETAMIN 10-325 MG PO PRN ×3 (08:12→20:21)
[2021-03-14] MEDS: SYNTHROID 100 MCG PO SCH (09:56)
[2021-03-14] MEDS: Lotensin 10 MG PO SCH (09:56)
[2021-03-14] MEDS: Miralax Powder 17GM PACKET PO SCH (09:56)
[2021-03-14] MEDS: ZOLOFT 50 MG TABLET PO SCH (09:56)
[2021-03-14] MEDS: Colace 100 MG PO SCH (09:56)
[2021-03-14] MEDS: Ditropan XL 5 MG PO SCH (09:56)
[2021-03-14] MEDS: Effexor XR 75 MG PO SCH (09:56)
[2021-03-14] MEDS: Protonix 40MG Tablet PO SCH (09:57)
[2021-03-14] MEDS: hydroDIURIL 25 MG PO SCH (09:57)
[2021-03-14] MEDS: TOPIRAMATE PO SCH ×2 (09:57→21:33)
[2021-03-14] MEDS: Risperdal 1 MG PO SCH (09:57)
[2021-03-14] MEDS: NICODERM CQ 14 MG TOP SCH (09:57)
[2021-03-14] MEDS: TYLENOL 325 MG PO PRN (12:08)
[2021-03-14] MEDS: ZOFRAN ODT 4 MG PO PRN ×2 (13:21→18:47)
[2021-03-14] MEDS: Flonase NASAL NS SCH (14:16)
[2021-03-14] MEDS: DULCOLAX 5 MG PO PRN (14:23)
[2021-03-14] MEDS: NEURONTIN 300 MG PO SCH (21:34)
[2021-03-14] MEDS: VENTOLIN COMMON CANISTER IH PRN (22:15)
[2021-03-15] MEDS: HYDROCODONE-ACETAMIN 10-325 MG PO PRN ×4 (02:15→22:30)
[2021-03-15] MEDS: VENTOLIN COMMON CANISTER IH PRN ×2 (07:15→19:15)
[2021-03-15] MEDS: TYLENOL 325 MG PO PRN ×2 (07:34→19:54)
[2021-03-15] MEDS: Miralax Powder 17GM PACKET PO SCH (08:59)
[2021-03-15] MEDS: ZOLOFT 50 MG TABLET PO SCH (09:01)
[2021-03-15] MEDS: SYNTHROID 100 MCG PO SCH (09:01)
[2021-03-15] MEDS: Effexor XR 75 MG PO SCH (09:01)
[2021-03-15] MEDS: hydroDIURIL 25 MG PO SCH (09:02)
[2021-03-15] MEDS: Ditropan XL 5 MG PO SCH (09:02)
[2021-03-15] MEDS: Lotensin 10 MG PO SCH (09:02)
[2021-03-15] MEDS: Risperdal 1 MG PO SCH (09:02)
[2021-03-15] MEDS: Protonix 40MG Tablet PO SCH (09:02)
[2021-03-15] MEDS: DULCOLAX 5 MG PO PRN (09:03)
[2021-03-15] MEDS: Colace 100 MG PO SCH (09:05)
[2021-03-15] MEDS: NICODERM CQ 14 MG TOP SCH (09:08)
[2021-03-15] MEDS: TOPIRAMATE PO SCH ×2 (09:37→19:55)
--- NOTE | 2021-03-15 10:39 | PCM.NOTE ---
Date and Time: 03/15/21 1038 Subjective Assessment: doing ok - Review of Systems Constitutional: No Fever, No Chills Eyes: No Symptoms Ears, Nose, & Throat: No Symptoms Respiratory: No Cough, No Short Of Breath Cardiac: No Chest Pain, No Edema, No Syncope Abdominal/Gastrointestinal: No Abdominal Pain, No Nausea, No Vomiting, No Diarrhea Genitourinary Symptoms: No Dysuria Musculoskeletal: No Back Pain, No Neck Pain Skin: No Rash Neurological: No Dizziness, No Focal Weakness, No Sensory Changes Psychological: No Symptoms Endocrine: No Symptoms Hematologic/Lymphatic: No Symptoms Immunological/Allergic: No Symptoms Objective Exam General Appearance: no apparent distress, alert, anxiety Neurologic Exam: alert, oriented x 3, cooperative, normal mood/affect, nml cerebellar function, sensation nml, No motor deficits Skin Exam: normal color, warm, dry Eye Exam: PERRL, EOMI, eyes nml inspection Ears, Nose, Throat Exam: normal ENT inspection, pharynx normal, moist mucous membranes Neck Exam: normal inspection, non-tender, supple, full range of motion Respiratory Exam: normal breath sounds, lungs clear, No respiratory distress Cardiovascular Exam: regular rate/rhythm, normal heart sounds Gastrointestinal/Abdomen Exam: soft, No tenderness, No mass Extremity Exam: normal inspection, normal range of motion Back Exam: normal inspection, normal range of motion, No CVA tenderness, No vertebral tenderness Pelvic Exam: deferred Rectal Exam: deferred OBJECTIVE DATA Vital Signs: Vital Signs - 24 hr Temp Pulse Resp BP Pulse Ox 03/15/21 08:00 96.9 F 85 22 120/72 99 03/15/21 07:17 75 18 98 03/15/21 00:00 97.5 F 95 H 18 118/59 97 03/14/21 22:15 86 18 95 03/14/21 19:53 97.7 F 98 H 18 112/53 98 03/14/21 16:00 97.8 F 106 H 20 113/58 94 L 03/14/21 12:00 97.7 F 101 H 20 122/70 95 Pain Assessment - Last Documented Pain Intensity 7 Pain Scale Used 0-10 Pain Scale Intake and Output: Intake & Output 03/12/21 03/13/21 03/14/21 03/15/21 11:59 11:59 11:59 11:59 Intake Total 098 364 0147 Output Total 3050 3900 1000 Balance -2130 -3660 1280 Weight 125.9 kg Lab Results: Lab Results-Last 24 Hours 03/14/21 03/14/21 03/14/21 Range/Units 11:50 16:02 21:07 POC Glucometer 107 H 179 H 125 H (74 to 106) mg/dL 03/15/21 Range/Units 07:40 POC Glucometer 98 (74 to 106) mg/dL Multi-Disciplinary Progress Notes: Multi-Disciplinary Progress Notes 03/14/21 16:15 (created 03/14/21 17:50) Case Management Note by Tonya Gill DECLINED REFERRAL- PATIENT CURRENTLY GETTING RE-EVALUATED BY [facility]. PRIMARY NURSE NOTIFIED. SHE WILL DISCUSS WITH MOTHER ALONG WITH THE RESULTS OF THE [facility] RE-CONSULT. Initialized on 03/14/21 17:50 - END OF NOTE 03/14/21 13:43 Case Management Note by Tonya Gill TRANSITIONS HAS NO BEDS Initialized on 03/14/21 13:43 - END OF NOTE 03/14/21 13:00 (created 03/14/21 17:44) Case Management Note by Tonya Gill STILL HAVE NOT FOUND INPT PSYCH PLACEMENT FOR PATIENT AFTER SENDING REFERRAL TO [facility]. GUARDIAN AND PATIENT BOTH REQUESTING TO HAVE [facility] RE-CONSULT TO SEE IF INPT PSYCH TREATMENT IS STILL NEEDED. DR. JACOBSEN'S OFFICE NOTIFIED- AGREEABLE TO HAVE PATIENT RE-EVALUATED. IF INPT STAY IS NO LONGER NEEDED MOTHER WOULD LIKE PATIENT TO TRANSITION TO [place]. REFERRAL WAS FAXED TO [facility] BY [facility]ILY RE[facility] IN HOPE THEY WILL ACCEPT IF SHE IS CLEARED FOR DC BY [facility]. Initialized on 03/14/21 17:44 - END OF NOTE 03/14/21 12:36 Case Management Note by Tonya Gill IS NOT ACCEPTING ANY ADMISSIONS AT THIS TIME- THEY CAN RE-EVALUATE WEDNESDAY IF NEEDED Initialized on 03/14/21 12:36 - END OF NOTE 03/14/21 11:08 Case Management Note by Tonya Gill DECLINED REFERRAL Initialized on 03/14/21 11:08 - END OF NOTE Assessment/Plan (1) Auditory hallucination Current Visit: Yes Status: Acute Code(s): R44.0 - AUDITORY HALLUCINATIONS (2) Chronic back pain Current Visit: Yes Status: Acute Qualifiers: Back pain location: back pain in unspecified location Back pain laterality: unspecified Qualified Code(s): M54.9 - Dorsalgia, unspecified; G89.29 - Other chronic pain Code(s): M54.9 - DORSALGIA, UNSPECIFIED; G89.29 - OTHER CHRONIC PAIN (3) Suicidal ideation Current Visit: Yes Status: Acute Code(s): R45.851 - SUICIDAL IDEATIONS
[2021-03-15] MEDS: Flonase NASAL NS SCH (10:53)
[2021-03-15] MEDS: AMITIZA PO SCH ×2 (12:26→22:30)
[2021-03-15] MEDS: LIORESAL 10 MG PO SCH ×3 (14:20→22:30)
[2021-03-15] MEDS ORDERED: Ventolin Hfa MDI IH ONE (19:14)
[2021-03-15] MEDS: zyPREXA 5MG TABLET PO SCH (22:31)
[2021-03-15] MEDS: NEURONTIN 300 MG PO SCH (22:31)
[2021-03-16 00:15] VITALS: O2SAT 97
[2021-03-16] MEDS: HYDROCODONE-ACETAMIN 10-325 MG PO PRN (06:33)
--- NOTE | 2021-03-16 08:39 | PCM.NOTE ---
Date and Time: 03/16/2138 Subjective Assessment: awaiting transfer - Review of Systems Constitutional: No Fever, No Chills Eyes: No Symptoms Ears, Nose, & Throat: No Symptoms Respiratory: No Cough, No Short Of Breath Cardiac: No Chest Pain, No Edema, No Syncope Abdominal/Gastrointestinal: No Abdominal Pain, No Nausea, No Vomiting, No Diarrhea Genitourinary Symptoms: No Dysuria Musculoskeletal: No Back Pain, No Neck Pain Skin: No Rash Neurological: No Dizziness, No Focal Weakness, No Sensory Changes Psychological: No Symptoms Endocrine: No Symptoms Hematologic/Lymphatic: No Symptoms Immunological/Allergic: No Symptoms Objective Exam General Appearance: no apparent distress, alert Neurologic Exam: alert, oriented x 3, cooperative, normal mood/affect, nml cerebellar function, sensation nml, agitation, depressed mood/affect, No motor deficits Skin Exam: normal color, warm, dry Eye Exam: PERRL, EOMI, eyes nml inspection Ears, Nose, Throat Exam: normal ENT inspection, pharynx normal, moist mucous membranes Neck Exam: normal inspection, non-tender, supple, full range of motion Respiratory Exam: normal breath sounds, lungs clear, No respiratory distress Cardiovascular Exam: regular rate/rhythm, normal heart sounds Gastrointestinal/Abdomen Exam: soft, No tenderness, No mass Extremity Exam: normal inspection, normal range of motion Back Exam: normal inspection, normal range of motion, No CVA tenderness, No vertebral tenderness Pelvic Exam: deferred Rectal Exam: deferred OBJECTIVE DATA Vital Signs: Vital Signs - 24 hr Temp Pulse Resp BP Pulse Ox 03/16/21 06:30 90 16 97 03/16/21 04:00 97.6 F 75 18 104/68 97 03/16/21 00:00 97.3 F 88 18 119/65 97 03/15/21 20:04 98.1 F 93 H 20 129/61 96 03/15/21 19:15 107 H 18 97 03/15/21 16:00 97.3 F 94 H 20 109/57 95 03/15/21 12:00 97.5 F 88 20 119/65 95 Pain Assessment - Last Documented Pain Intensity 7 Pain Scale Used 0-10 Pain Scale Intake and Output: Intake & Output 03/13/21 03/14/21 03/15/21 03/16/21 11:59 11:59 11:59 11:59 Intake Total 296 211 1197 2020 Output Total 3050 3900 1000 3900 Balance -2130 -3660 1280 -1880 Lab Results: Lab Results-Last 24 Hours 03/15/21 03/15/21 03/15/21 Range/Units 11:42 16:13 20:50 POC Glucometer 121 H 164 H 155 H (74 to 106) mg/dL Assessment/Plan (1) Suicidal ideation Current Visit: Yes Status: Acute Code(s): R45.851 - SUICIDAL IDEATIONS (2) Auditory hallucination Current Visit: Yes Status: Acute Code(s): R44.0 - AUDITORY HALLUCINATIONS (3) Chronic back pain Current Visit: Yes Status: Acute Qualifiers: Back pain location: back pain in unspecified location Back pain laterality: unspecified Qualified Code(s): M54.9 - Dorsalgia, unspecified; G89.29 - Other chronic pain Code(s): M54.9 - DORSALGIA, UNSPECIFIED; G89.29 - OTHER CHRONIC PAIN
[2021-03-16] MEDS: Effexor XR 75 MG PO SCH (10:23)
[2021-03-16] MEDS: TYLENOL 325 MG PO PRN (10:23)
[2021-03-16] MEDS: ZOLOFT 50 MG TABLET PO SCH (10:24)
[2021-03-16] MEDS: Risperdal 1 MG PO SCH (10:24)
[2021-03-16] MEDS: zyPREXA 5MG TABLET PO SCH (10:24)
[2021-03-16] MEDS: SYNTHROID 100 MCG PO SCH (10:24)
[2021-03-16] MEDS: Colace 100 MG PO SCH (10:25)
[2021-03-16] MEDS: Protonix 40MG Tablet PO SCH (10:25)
[2021-03-16] MEDS: Lotensin 10 MG PO SCH (10:25)
[2021-03-16] MEDS: AMITIZA PO SCH (10:25)
[2021-03-16] MEDS: LIORESAL 10 MG PO SCH (10:25)
[2021-03-16] MEDS: Ditropan XL 5 MG PO SCH (10:25)
[2021-03-16] MEDS: TOPIRAMATE PO SCH (11:04)
[2021-03-16] MEDS: hydroDIURIL 25 MG PO SCH (11:04)
[2021-03-16] MEDS: NICODERM CQ 14 MG TOP SCH (11:05)
[2021-03-16 15:56] VITALS: BP 120/57; PULSE 92
[2021-03-16] MEDS: Miralax Powder 17GM PACKET PO SCH (17:23)
[2021-03-16] MEDS: Flonase NASAL NS SCH (17:23)
== END 2021-03-16 11:20 ==
LOC: ED 19:11 → ICU 03-12 08:45 → MED SURG 03-12 19:44
PROVIDERS: ADMIT Family Medicine; ATTEND Family Medicine
DX: R45.851 Suicidal ideations (principal); R44.0 Auditory hallucinations; M54.9 Dorsalgia, unspecified; E11.9 Type 2 diabetes mellitus without complications; I10 Essential (primary) hypertension; G89.29 Other chronic pain; F17.200 Nicotine dependence, unspecified, uncomplicated; F41.9 Anxiety disorder, unspecified; F32.9 Major depressive disorder, single episode, unspecified; Z79.899 Other long term (current) drug therapy; Z20.828 Contact with and (suspected) exposure to other viral communicable diseases; Z87.820 Personal history of traumatic brain injury
CPT/HCPCS: 36415; 80048; 80053; 80307; 81001; 82947; 83036; 84134; 85025; 85027; 90791; 93005; 94640; 94760; 99000; 99284; G0378; G0480; Q3014; J1817; L0625; Q0162; A9270-GY